=== PATIENT | female | born 1985 | race Hispanic/Latino ===

== ENCOUNTER 2023-08-25 17:14 | Emergency (ER) | payer SELFPAY ==
[2023-08-25] MEDS ORDERED: Ibuprofen 200 MG TAB ONE (18:33)
[2023-08-25 18:35] LABS: SARS-CoV-2 NAA Rapid Test Not Detected (NotDetected)
== END 2023-08-25 19:51 | disposition home or self-care (01) ==
LOC: ERS 17:14
DX: B34.9 Viral infection, unspecified (principal); Z20.822 Contact with and (suspected) exposure to COVID-19
CPT/HCPCS: 71045; 93005; U0002